=== PATIENT | female | born 1960 | race Caucasian/White ===

== ENCOUNTER 2018-04-08 06:40 | Day surgery (SDC) | payer OTHER ==
[~2018-04-08 06:40] MED LIST: CEFAZOLIN 2 GM/50 ML (PMX) 50 ML IVPB
[2018-04-08] MEDS: SOD CHLORIDE 0.9% 1,000 ML IV (07:27)
[2018-04-08] MEDS ORDERED: BUPIVACAINE 0.25% (MPF) 30 ML INJ (07:42)
[2018-04-08] MEDS ORDERED: MIDAZOLAM 1 MG/ML 2 ML INJ (08:49)
[2018-04-08] MEDS ORDERED: LIDOCAINE 1% (MDV) 20 ML INJ (08:49)
[2018-04-08] MEDS ORDERED: PROPOFOL 20 ML (08:49)
[2018-04-08] MEDS ORDERED: ONDANSETRON 4 MG INJ ×3 (08:59→09:48)
[2018-04-08] MEDS ORDERED: CEFAZOLIN 1 GM INJ (08:59)
[2018-04-08] MEDS ORDERED: HYDROCODONE/APAP (5/325) TAB PO (09:30)
[2018-04-08] MEDS: HYDROmorphONE 1 MG/5 ML IV SYRINGE IV (09:45)
[2018-04-08] MEDS: ONDANSETRON 4 MG INJ IV (09:55)
== END 2018-04-08 11:24 | disposition home or self-care (01) ==
LOC: SDS 06:40
DX: D17.1 Benign lipomatous neoplasm of skin and subcutaneous tissue of trunk (principal)
CPT/HCPCS: 14000; 88307

== ENCOUNTER 2018-05-09 08:36 | Day surgery (SDC) | payer OTHER ==
[~2018-05-09 08:36] MED LIST changes: -CEFAZOLIN 2 GM/50 ML (PMX) 50 ML IVPB; +METOCLOPRAMIDE 10 MG INJ; +ONDANSETRON 4 MG INJ
[2018-05-09 09:37] LABS: ADD MAN DIFF? NO
[2018-05-09 09:43] LABS: WHITE BLOOD COUNT 7.1 10^3/ul (4.8-10.8)
[2018-05-09 09:43] LABS: BASOPHIL # 0.1 10^3/ul (0.0-0.1); EOSINOPHILS # 0.2 10^3/ul (0.0-0.5); EOSINOPHILS % 2.3 % (0.0-7.0); HEMATOCRIT 42.1 % (37.0-47.0); HEMOGLOBIN 14.2 g/dl (12.0-16.0); LYMPHOCYTES # 2.1 10^3/ul (0.8-2.9); LYMPHOCYTES % 29.4 % (15.0-51.0); MEAN CORPUSCULAR HEMOGLOBIN 29.3 pg (29.0-33.0); MEAN CORPUSCULAR HGB CONC 33.7 g/dl (32.0-37.0); MEAN CORPUSCULAR VOLUME 86.8 fl (82.0-101.0); MEAN PLATELET VOLUME 10.2 fl (7.4-10.4); MONOCYTE # 0.6 10^3/ul (0.3-0.9); MONOCYTES % 8.2 % (0.0-11.0); NEUTROPHIL # 4.2 10^3/ul (1.6-7.5); NEUTROPHILS % 58.8 % (39.0-77.0); PLATELET COUNT 324 10^3/UL (140-415); RED BLOOD COUNT 4.85 10^6/ul (4.20-5.40); RED CELL DISTRIBUTION WIDTH 11.9 % (11.5-14.5)
[2018-05-09] MEDS ORDERED: LACTATED RINGER'S 1,000 ML IV (10:00)
[2018-05-09 10:01] LABS: ALANINE AMINOTRANSFERASE 33 IU/L (13-69); ALBUMIN 3.7 g/dl (3.3-4.9); ALBUMIN/GLOBULIN RATIO 1.08; ALKALINE PHOSPHATASE 72 IU/L (42-121); ANION GAP 15 (8-16); ASPARTATE AMINO TRANSFERASE 22 IU/L (15-46); BILIRUBIN,INDIRECT 0.6 mg/dl (0-1.1); BILIRUBIN,TOTAL 0.6 mg/dl (0.2-1.3); BLOOD UREA NITROGEN 17 mg/dl (7-20); CALCIUM 9.3 mg/dl (8.4-10.2); CARBON DIOXIDE 30 mmol/L (21-31); CHLORIDE 103 mmol/L (97-110); CREATININE 0.66 mg/dl (0.44-1.00); GLUCOSE 105 mg/dl (70-220); POTASSIUM 4.5 mmol/L (3.5-5.1); SODIUM 143 mmol/L (135-144); TOTAL PROTEIN 7.1 g/dl (6.1-8.1)
[2018-05-09 10:03] LABS: INR 0.93; PARTIAL THROMBOPLASTIN TIME 25.2 Sec (23.0-35.0); PROTIME 12.5 Sec (11.9-14.9)
[2018-05-09] MEDS ORDERED: FENTAnyl 50 MCG/ML VIAL (10:33)
[2018-05-09] MEDS ORDERED: DEXAMETHASONE 4 MG/ML 1 ML INJ (10:34)
[2018-05-09] MEDS ORDERED: MIDAZOLAM 1 MG/ML 2 ML INJ (10:34)
[2018-05-09] MEDS ORDERED: PROPOFOL 20 ML (10:35)
[2018-05-09] MEDS ORDERED: CEFAZOLIN 1 GM INJ (10:35)
[2018-05-09] MEDS ORDERED: LIDOCAINE 2% (SDV) 5 ML INJ (10:35)
[2018-05-09] MEDS ORDERED: DIPHENHYDRAMINE 50 MG INJ IV (12:00)
[2018-05-09] MEDS ORDERED: MEPERIDINE 25 MG INJ IV (12:00)
[2018-05-09] MEDS ORDERED: FENTAnyl 50 MCG/ML VIAL IV ×2 (12:00)
[2018-05-09] MEDS ORDERED: ONDANSETRON 4 MG INJ IV (12:00)
[2018-05-09] MEDS ORDERED: hydrALAzine 20 MG INJ IV (12:00)
[2018-05-09] MEDS ORDERED: HYDROmorphONE 1 MG/5 ML IV SYRINGE IV ×2 (12:00)
[2018-05-09] MEDS ORDERED: IPRATROPIUM (NEB) 0.5 MG/2.5 ML AMP HHN (12:00)
[2018-05-09] MEDS ORDERED: KETOROLAC 30 MG INJ IV (12:00)
[2018-05-09] MEDS ORDERED: LABETALOL HCL 20MG INJ IV (12:00)
[2018-05-09] MEDS: BUPIVACAINE 0.25% (MPF) 30 ML INJ (12:28)
[2018-05-09] MEDS ORDERED: OXYCODONE/ACETAMINOPHEN (5/325) TAB PO (13:00)
== END 2018-05-09 14:40 | disposition home or self-care (01) ==
LOC: SDS 08:36
DX: M79.89 Other specified soft tissue disorders (principal); I10 Essential (primary) hypertension
CPT/HCPCS: 14001; 71045; 80053; 85025; 85610; 85730; 88307; 93005